=== PATIENT | female | born 1990 ===

== ENCOUNTER 2020-10-02 22:31 | Emergency (ER) | payer OTHER ==
[2020-10-03 00:22] LABS: HIV (1/2) Antibody/Antigen Non-Reactive (NonReactive); HIV 1/2 INDEX 0.08 S/CO (<1.00); Hep C IgG Ab Non-Reactive (NonReactive); Hep C Index 0.31 S/CO (0-0.79)
[2020-10-03 00:30] LABS: HBSAB Concentration 46.01 mIU/mL; Hep B Surf AB Reactive (NonReactive)
== END 2020-10-02 23:50 | disposition home or self-care (01) ==
LOC: ERS 22:31
DX: Z77.21 Contact with and (suspected) exposure to potentially hazardous body fluids (principal)
CPT/HCPCS: 36415; 86706; 86803; 87389; 99283